=== PATIENT | male | born 1930 | race American Indian/Alaskan Native ===

== ENCOUNTER 2016-06-24 15:13 | Outpatient (CLI) | payer MEDICARE ==
[2016-06-24 15:48] LABS: Albumin 3.9 g/dL (3.9-5); Calcium 9.3 mg/dL (8.4-10.2); Chloride 98.6 mmol/L (98-107); Phosphorous 3.1 mg/dL (2.5-4.5); Potassium 3.6 mmol/L (3.6-5.0)
== END 2016-06-24 15:14 | disposition home or self-care (01) ==
LOC: LAB 15:13
PROVIDERS: ATTEND Internal Medicine Nephrology
DX: R94.4 Abnormal results of kidney function studies (principal)
CPT/HCPCS: 36415; 80048; 82040; 84100